=== PATIENT | female | born 2000 | race Caucasian/White ===

== ENCOUNTER 2021-04-27 12:44 | Outpatient (CLI) | payer OTHER, SELFPAY ==
[2021-04-27 13:43] LABS: Erythrocyte Sedimentation Rate 4 mm/hr (0-30)
[2021-04-27 13:48] LABS: Absolute Lymphocyte Count 1.18 X10^3/uL (0.83-4.51); Absolute Neutrophil Count 3.2 X10^3/uL (2.0-7.7); Basophil# 0.04 X10^3/uL; Basophil% 0.8 % (0-1); Eosinophil# 0.11 X10^3/uL; Eosinophils% 2.2 % (0-5); Hematocrit 37.7 % (37-47); Hemoglobin 11.8 g/dL (12.0-15.0); Lymphocyte # 1.18 X10^3/ul (0.83-4.51); Lymphocyte % 24.1 % (19-41); Mean Corp Hgb Conc 31.3 g/dL (32-36); Mean Corpuscular Hgb 24.7 pg (27.0-32.0); Mean Platelet Vol. 11.9 fl (6.2-12.0); Monocyte# 0.34 X10^3/uL; Monocyte% 6.9 % (0-10); NRBC Flagged by Analyzer 0 % (0-5); Neutrophil # 3.22 X10^3/uL (2.7-7.7); Neutrophil % 65.8 % (47-70); Platelet Count 239 K/mm3 (150-450); RBC Distribution Width CV 16.8 % (11.6-14.6); RBC Distribution Width SD 47.8 fl (35.1-43.9); Red Blood Count 4.77 M/mm3 (4.2-5.4); White Blood Count 4.9 K/mm3 (4.4-11.0)
[2021-04-27 14:17] LABS: AST(SGOT) 18 U/L (15-37); Alanine Aminotransfer ALT/SGPT 17 U/L (13-56); Albumin, Serum 3.4 g/dL (3.2-5.0); Alkaline Phosphatase 50 U/L (45-117); BUN 11 mg/dL (7-18); Bilirubin, Direct 0.13 mg/dL (0.00-0.30); EST Glomerular Filtration Rate 111 mL/min (>60); Est Glom Filt Rate - Afr Amer 134 mL/min (>60); Globulin 4.1 g/dL (2.2-4.2); Glucose 84 mg/dL (74-106); Protein, Total 7.5 g/dL (6.4-8.2); Rheumatoid Factor < 10.0 IU/mL (<15); Thyroid Stim Hormone (TSH) 1.04 uIU/mL (0.358-3.74); Uric Acid 3.8 mg/dL (2.6-6.0)
[2021-04-30 16:49] LABS: Anti-Nuclear Antibody Test Negative (.)
[2021-04-30 21:05] LABS: Thyroid Peroxidase AB < 8 IU/mL (0-34)
== END 2021-04-27 23:59 | disposition home or self-care (01) ==
PROVIDERS: PCP Internal Medicine; Referring Provider Specialist; Visit Provider Specialist
DX: J30.9 Allergic rhinitis, unspecified (principal); D84.9 Immunodeficiency, unspecified; J45.50 Severe persistent asthma, uncomplicated; R06.00 Dyspnea, unspecified; J32.9 Chronic sinusitis, unspecified; L50.1 Idiopathic urticaria; T78.3XXD Angioneurotic edema, subsequent encounter; T78.09XD Anaphylactic reaction due to other food products, subsequent encounter; E55.9 Vitamin D deficiency, unspecified; E07.9 Disorder of thyroid, unspecified; Z91.038 Other insect allergy status
CPT/HCPCS: 36415; 80076; 82306; 82565; 82947; 83520; 84443; 84520; 84550; 85025; 85652; 86038; 86376; 86431

== ENCOUNTER → 2022-07-26 | Outpatient (CLI) | payer BC, SELFPAY ==
[2022-07-26 16:36] LABS: Hematocrit 41.2 % (37-47); Hemoglobin 13.7 g/dL (12.0-15.0); Mean Corp Hgb Conc 33.3 g/dL (32-36); Mean Corpuscular Volume 90.2 fL (81-99); Mean Platelet Vol. 11.8 fl (6.2-12.0); Platelet Count 208 K/mm3 (150-450); RBC Distribution Width CV 12.3 % (11.6-14.6); RBC Distribution Width SD 40.7 fl (35.1-43.9); Red Blood Count 4.57 M/mm3 (4.2-5.4); White Blood Count 5.3 K/mm3 (4.4-11.0)
[2022-07-26 17:04] LABS: Progesterone Level 0.43 ng/mL (See Comment)
[2022-07-26 17:07] LABS: Estradiol 38.6 pg/mL; Follicle Stimulating Hormone 7.8 mIU/mL; Luteinizing Hormone 14.1 mIU/mL; T4 Free Direct 0.95 ng/dL (0.76-1.46); Thyroid Stim Hormone (TSH) 2.01 uIU/mL (0.358-3.74)
[2022-07-28 12:58] LABS: Prolactin 9.1 ng/mL
[2022-07-30 12:08] LABS: 17-Hydroxyprogesterone 59 ng/dL (.); Vitamin D 1,25-Dihydroxy 67.7 pg/mL (24.8-81.5)
[2022-07-31 15:07] LABS: Testosterone, % Free 1.37 % (0.50-2.80); Testosterone, Free 0.48 ng/dL (0.10-0.85); Testosterone, Total 35 ng/dL (13-71)
== END | disposition home or self-care (01) ==
LOC: WOBLAB 15:54
PROVIDERS: PCP Internal Medicine; Visit Provider Student in an Organized Health Care Education/Training Program
DX: N92.6 Irregular menstruation, unspecified (principal)
CPT/HCPCS: 36415; 82627; 82652; 82670; 83001; 83002; 83498; 84144; 84146; 84402; 84403; 84439; 84443; 85027; 82626